=== PATIENT | female | born 1975 | race Caucasian/White ===

== ENCOUNTER 2016-08-27 19:11 | Emergency (ER) | payer SELFPAY ==
[~2016-08-27] VITALS: Ht 162.6 cm; Wt 56.2 kg
[2016-08-27] MEDS ORDERED: ETHYL CHLORIDE 100% TP ONE (19:30)
[2016-08-27] MEDS ORDERED: LIDOCAINE 2% 20 ML VIAL. IJ ONE (19:45)
[2016-08-27] MEDS ORDERED: SMZ/TMP 800/160MG TABLET. PO ONE (19:45)
[2016-08-27] MEDS ORDERED: HYDR-2666 PO (20:12)
[2016-08-27] MEDS ORDERED: SULF1TAB24 PO (20:12)
--- NOTE | 2016-08-27 20:12 | PHYS DOC ---
Adult General Chief Complaint Chief Complaint: SKIN PROBLEM HPI HPI Patient is a 41 year old female who presents by EMS complaining of a "spider bite" to her right forearm. She noticed it several days ago. It has become increasingly red and painful. Today she squeezed it and pus came out. She has had similar "spider bites" in the past, her last one on the right forearm healed up a month or 2 ago. The patient is here from out of town, her father recently and she is cleaning out his apartment. She states they have killed a couple of spiders. The patient denies IV drug abuse. She denies any other injury to her right forearm to her knowledge. The patient denies allergy to antibiotic. She states ibuprofen and Toradol give her a rash. Later, she stated Toradol in fact does not give her a rash, she was mistaken. PCP none Review of Systems Review of Systems Constitutional: Denies fever or chills [] Eyes: Denies change in visual acuity, redness, or eye pain [] HENT: Denies nasal congestion or sore throat [] Respiratory: Denies cough or shortness of breath [] Cardiovascular: Denies chest pain GI: Denies abdominal pain, nausea, vomiting, bloody stools or diarrhea [] : Denies dysuria or hematuria [] Musculoskeletal: Denies back pain or joint pain [] Integument: As in history of present illness Neurologic: Denies headache, focal weakness or sensory changes [] Current Medications Current Medications Current Medications Medications (Trade) Dose Ordered Sig/Nikia Start Time Stop Time Status Last Admin Dose Admin Ethyl Chloride 1 spray 1X ONCE 08/27/16 19:30 08/27/16 19:31 DC Lidocaine HCl 20 ml 1X ONCE 08/27/16 19:45 08/27/16 19:46 DC Trimethoprim/ Sulfamethoxazole (Bactrim Ds) 1 tab 1X ONCE 08/27/16 19:45 08/27/16 19:46 DC Allergies Allergies Allergies Coded Allergies Type Severity Reaction Last Updated Verified ibuprofen Allergy Intermediate Hives 08/27/16 Yes ketorolac Allergy Intermediate Hives 08/27/16 Yes Physical Exam Physical Exam Constitutional: Thin female who appears older than stated age, ambulatory, afebrile, alert and mentating normally. Smells of alcohol but does not appear to be acutely intoxicated. HENT: Normocephalic, atraumatic, bilateral external ears normal, very poor dentition, nose normal. [] Eyes: conjunctiva normal, no discharge. [] Neck: Normal range of motion, no stridor. [] Skin: Warm, dry, no erythema, no rash. Both forearms have scars that may be consistent with healed track machuca. Right forearm has a more recently healed area on the distal forearm and an acute lesion on the proximal forearm. There is an area of cellulitis with induration and possibly fluctuance approximately 6 x 8 cm. It is red, warm, markedly tender to palpation. There is a central area that has drained and with palpation continues to drain purulent material. No retained foreign body is noted. Extremities: No tenderness, no cyanosis, no clubbing, ROM intact, no edema. See skin, above. Neurologic: Alert and oriented X 3, normal motor function, normal sensory function, no focal deficits noted. [] EKG EKG [] Radiology/Procedures Radiology/Procedures Procedure: Incision and drainage of right forearm abscess by me Right forearm was prepped with chlorhexidine surgical sponge Area was sprayed with ethyl chloride spray Area for incision was injected with lidocaine 2% Area was explored with a 16-gauge needle on a 10 mL syringe, aspirating, without return of pus 1 cm incision was made over the area of the most fluctuance, extending into the area that already drained A minimal amount of old blood came out, essentially no purulent material was obtained To the extent tolerated by the patient, the questionably fluctuant area was incised and explored without any significant pus found The forearm area was dressed with gauze and Coban [] Course & Med Decision Making Course & Med Decision Making Pertinent Labs and Imaging studies reviewed. (See chart for details) 41-year-old female presents by EMS with a right forearm cellulitis which has recently drained pus and may still have some area of abscess. I discussed with the patient that I would like to attempt to I and D any more pus from the lesion. I would like to give the patient some pain control before starting the procedure, but I'm concerned because the patient presented by EMS and does not have any transportation. She tried to make a couple of phone calls to try to get someone to come pick her up but was not able to do so. I don't feel comfortable putting her into a cab or discharging her after giving her sedative medication in the current weather conditions so I explained to her that I will not give her sedative medication for the procedure and she understands that. To the extent that the patient was able to tolerate it. I did anesthetize and incise over the area of questionable fluctuance and I was not able to have any pus drained from the incision. I discussed with the patient warm soaks 3-4 times a day for continued encouragement to drain. First dose of Bactrim in the ED. A prescription for Bactrim and a limited number of hydrocodone for pain. Return precautions given. [] Dragon Disclaimer Dragon Disclaimer This electronic medical record was generated, in whole or in part, using a voice recognition dictation system. Departure Departure Impression: Primary Impression: Cellulitis and abscess of upper arm and forearm Disposition: 01 HOME, SELF-CARE Condition: STABLE Patient Instructions: Abscess, [id number] Additional Instructions: Soak the area in comfortably warm/hot soapy water 3-4 times a day until better. Elevate for pain and swelling when possible. Bactrim, antibiotic, take until finished. Hydrocodone for pain, it is an opiate, do not take while driving. If you start running fevers, if the redness extends up here arm toward your armpit, if you are feeling sick and weak all over, the infection might be getting into your system, return to ER. Scripts Hydrocodone Bit/Acetaminophen (Hydrocodone-Apap 5-325 )1 Each Tablet1 Tab PO PRN Q6HRS PRN PAIN #6 TAB Ref 0 As needed for pain Prov:GELACIO GROVER MD 08/27/16 Sulfamethoxazole/Trimethoprim (Bactrim Ds Tablet)1 Each Tablet1 Tab PO BID #20 TAB For arm cellulitis Prov:GELACIO GROVER MD 08/27/16 GELACIO GROVER MD Aug 27, 2016 20:12
[2016-08-27 20:20] VITALS: BP 122/76
== END 2016-08-27 20:24 | disposition home or self-care (01) ==
LOC: ER 19:11
DX: L03.113 Cellulitis of right upper limb (principal); Z88.6 Allergy status to analgesic agent
CPT/HCPCS: 10060; 99283-25